=== PATIENT | male | born 1950 | race Caucasian/White ===

== ENCOUNTER → 2016-12-19 | Day surgery (SDC) | payer MEDICARE ==
[~2016-12-19] MED LIST: ACETAMINOPHEN/HYDROcodone 325 MG/5 MG TAB ONE; BUPIVACAINE/EPINEPHRINE 0.25% 50 ML VIAL ONE; KETOROLAC TROMETHAMINE 30 MG/ML (IVP) VIAL IV PUSH ONE; LACTATED RINGER'S 1000 ML INJ 1,000 ML ONE; MIDAZOLAM HCL 2 MG/2 ML VIAL ONE; ONDANSETRON HCL 4 MG/2 ML VIAL IV PUSH ONE; PROPOFOL 200 MG/20 ML AMP IV ONE; ceFAZolin 2 GM PREMIX 50 ML ONE
--- NOTE | 2016-12-19 11:39 | TN ---
cc: DEBRA FLOOD DATE OF SURGERY 12/19/2016 PREOPERATIVE DIAGNOSIS Left indirect inguinal hernia. POSTOPERATIVE DIAGNOSIS Left indirect inguinal hernia. PROCEDURE Laparoscopic (TEP) left inguinal hernia repair with mesh. ATTENDING SURGEON Debra Flood MD [employer] Ezequiel Hagen ANESTHESIA General with LMA and local anesthetic and inguinal block. BLOOD LOSS Less than 10 cc COMPLICATIONS None FINDINGS Small to medium size left indirect inguinal hernia. INDICATIONS FOR PROCEDURE The patient is a 66-year-old male who has some recurrent chronic groin and pelvic pain with a history of prostatitis, renal stones and hernia repair on the right and small inguinal hernia on the left. The patient has undergone multiple treatments and continued to have discomfort. The patient would like to have his left hernia repaired in an attempt to relieve his pain symptoms. The patient does understand that repair of his small left inguinal hernia may not be the major source of this pain. This was discussed with him and he agreed to undergo the procedure. PROCEDURE The patient was taken to the operating room at [facility] and placed in the supine position and placed under general anesthesia. The patient's abdomen and groin was shaved, prepped and draped in a sterile fashion. Time-out was performed. At this point in time, the inguinal type block was performed. We identified the anatomy of the anterior superior iliac spine and we used 10 cc of Marcaine with epinephrine to anesthetize the sensory nerves proximally. At this point in time we then turned our attention towards the surgery. We did make a 2 cm horizontal skin incision just to the left of the umbilicus with the 11 blade scalpel. We dissected the subcutaneous tissue and opened the anterior rectus sheath. We relocated the rectus muscles laterally and dissected a preperitoneal plane. We placed a dissector balloon into this space and insufflated the balloon under visualization of the scope with a good dissection in the preperitoneal plane. We then removed the dissector balloon after removing the air insufflation. We placed the cuffed balloon preperitoneal trocar into the space and insufflated the balloon. We insufflated the space, had excellent working space perperitoneally. We then placed two 5 mm trocars in the midline under direct visualization of the laparoscope. We then were able to complete dissection of the plane and identified the left cord structure easily. There was a small defect lateral to the epigastric artery and vein without any defect medially. We were able to identify the hernia sac which was small to medium size and it was dissected free from cord structures well as well as some cord lipoma and dissected back into the abdomen. We skeletonized the vas deferens and the vascular structures of the cord and took down all cremasteric muscles. We then were able to turn our attention towards placement of mesh. We placed a 6 inch x 4 inch piece of light weight polypropylene mesh in the preperitoneal space without difficulty. No slit was performed. We tacked this in place with a Protack device anteriorly. We had excellent coverage of our defect and we removed the ports and desufflated the preperitoneal space under visualization of the camera with good technical position and mesh. We then were able to remove all ports and closed the anterior rectus sheath with a running 0 Vicryl suture. We closed the skin with 4-0 Monocryl and Dermabond. The patient had a scrotal support placed and assured the testicles were in normal anatomic position. The patient was discontinued from anesthesia and taken to the PACU in stable condition. The patient tolerated the procedure well. No apparent complications. All counts were correct and I was present and scrubbed for the entire procedure. MD JUNE Fournier/YOLETTE /10:48 AM /11:11 AM
== END | disposition home or self-care (01) ==
LOC: ESDC 08:04
PROVIDERS: ATTEND Surgery
DX: K40.90 Unilateral inguinal hernia, without obstruction or gangrene, not specified as recurrent (principal)
CPT/HCPCS: 00840; 49650; C1727; C1781; J0690; J1885; J2250; J2405; J3010; J7120